=== PATIENT | female | born 2000 | race Caucasian/White ===

== ENCOUNTER 2022-11-20 02:11 | Emergency (ER) | payer BC, SELFPAY ==
[2022-11-20 02:15] VITALS: BP 131/75; PULSE 118; RESP 16; TEMP 36.9; O2SAT 100
--- NOTE | 2022-11-20 02:32 | ED.GENADULT ---
HPI - General Adult General Chief complaint: Ear Stated complaint: ear, headache. Time Seen by Provider: 11/20/22 02:25 History of Present Illness HPI narrative: Patient 22-year-old female who presents the emergency department with chief complaint of right ear pain. Patient reports that she has had an upper respiratory infection for approximately 1 week patient also reports she is currently 19 weeks the patient states that she had a cough has had a frontal headache and pain in her throat on the right side. Patient states that this evening she started having severe pain in the right ear reports she is not able to get comfortable and reports she is concerned that she may have developed an ear infection. Related Data Allergies Allergy/AdvReac Type Severity Reaction Status Date / Time No Known Allergies Allergy Verified 11/20/22 02:12 Review of Systems Review of Systems: A 10 system review of systems was completed on the patient and is negative except for what is stated in the HPI. Nursing and ancillary documentation was reviewed. Exam Narrative: GENERAL: Well-appearing, well-nourished, and in no acute distress. HEAD: Normocephalic, atraumatic. EYES: PERRLA and EOMI. ENT: Nares clear, no rhinorrhea or epistaxis. Mucous membranes moist. Right tympanic membrane is erythematous NECK: Supple. CHEST: Clear to auscultation. No respiratory distress. HEART: Regular rate and rhythm. No murmur heard. Normal peripheral pulses. ABDOMEN: Soft, nontender, nondistended, normal active bowel sounds. EXTREMITIES: Normal range of motion. No edema. SKIN: Warm, dry, no rash. NEURO: No focal deficits. Alert and oriented x3. PSYCH: Normal mood and affect. Course Vital Signs Vital signs: Vital Signs Temperature 36.9 C 11/20/22 02:15 Pulse Rate 118 H 11/20/22 02:15 Respiratory Rate 16 11/20/22 02:15 Blood Pressure 131/75 11/20/22 02:15 Pulse Oximetry 100 11/20/22 02:15 Oxygen Delivery Room Air 11/20/22 02:15 Temperature 36.9 C 11/20/22 02:15 Pulse Rate 118 H 11/20/22 02:15 Respiratory Rate 16 11/20/22 02:15 Blood Pressure 131/75 11/20/22 02:15 Pulse Oximetry 100 11/20/22 02:15 Oxygen Delivery Room Air 11/20/22 02:15 Medical Decision Making MDM Narrative Medical decision making narrative: Differential diagnosis includes otitis media, upper respiratory infection, sinus infection, viral syndrome Patient's physical exam is consistent with acute otitis media. The patient will be started on amoxicillin and will be instructed to follow-up with her primary care provider. Vital Signs Vital Signs: Vital Signs Temperature 36.9 C 11/20/22 02:15 Pulse Rate 118 H 11/20/22 02:15 Respiratory Rate 16 11/20/22 02:15 Blood Pressure 131/75 11/20/22 02:15 Pulse Oximetry 100 11/20/22 02:15 Oxygen Delivery Room Air 11/20/22 02:15 Temperature 36.9 C 11/20/22 02:15 Pulse Rate 118 H 11/20/22 02:15 Respiratory Rate 16 11/20/22 02:15 Blood Pressure 131/75 11/20/22 02:15 Pulse Oximetry 100 11/20/22 02:15 Oxygen Delivery Room Air 11/20/22 02:15 Discharge Plan Discharge Clinical Impression: Otitis media Qualifiers: Chronicity: acute Laterality: right Recurrence: not specified as recurrent Spontaneous tympanic membrane rupture: without spontaneous rupture Patient Disposition: Home, Self-Care Condition: Stable Instructions: Antibiotic Form, Ear Infection (ED) Prescriptions: New amoxicillin 500 mg capsule 500 mg PO Q12H 10 Days Qty: 20 0RF Follow-up/Referrals: PHYSICIAN NOT ON STAFF,NONSTAFF [Primary Care Provider] - Time of Disposition: 02:35
[2022-11-20] MEDS: ACETAMINOPHEN 500 MG TABLET 1000 MG PO (02:49)
[2022-11-20] MEDS: AMOXICILLIN 500 MG CAPSULE PO (02:49)
== END 2022-11-20 02:57 | disposition home or self-care (01) ==
LOC: ANHED 02:45
PROVIDERS: Emergency Provider Emergency Medicine; PCP Family Medicine
DX: O99.891 Other specified diseases and conditions complicating pregnancy (principal); H66.91 Otitis media, unspecified, right ear; Z3A.19 19 weeks gestation of pregnancy
CPT/HCPCS: 99283; A9270

== ENCOUNTER 2023-03-29 09:42 | Outpatient (CLI) | payer SELFPAY ==
[2023-03-29 10:11] LABS: Basophils Absolute Auto 0.1 K/mm3 (0.0-0.1); Basophils Percent Auto 0.6 % (0.2-1.2); Eosinophils Absolute Auto 0.5 K/mm3 (0-0.3); Eosinophils Percent Auto 4.5 % (0-4.4); Hematocrit 30.1 % (37.0-47.0); Immature Granulocyte Absolute 0.08 K/mm3 (0.00-0.031); Immature Granulocyte Percent A 0.7 % (0-0.5); Lymphocytes Absolute Auto 2.77 K/mm3 (0.9-3.2); Lymphocytes Percent Auto 23.8 % (18.3-44.2); Mean Corpuscular HGB Conc 29.9 g/dl (32-36); Mean Corpuscular Hemoglobin 24.8 pg (26-34); Mean Corpuscular Volume 82.9 fl (80-100); Mean Platelet Volume 11.5 fl (7.4-10.4); Monocytes Absolute Auto 0.8 K/mm3 (0.1-0.6); Monocytes Percent Auto 6.9 % (2.6-8.5); Neutrophils Absolute Auto 7.4 K/mm3 (1.3-6.7); Neutrophils Percent Auto 63.5 % (45.5-73.1); Platelet Count Result 187 k/mm3 (150-375); Red Blood Count 3.63 M/mm3 (4.2-5.4); Red Cell Distribution Width 15.3 % (11.5-14.5); White Blood Count 11.7 K/mm3 (4.5-10.0)
[2023-03-29 10:16] VITALS: BP 129/86; PULSE 89
[2023-03-29 10:21] LABS: Alanine Aminotransferase 14 U/L (6-35); Albumin Level 3.5 g/dL (3.5-5.1); Alkaline Phosphatase 175 U/L (38-126); Anion Gap 4 mmol/L (8-16); Aspartate Amino Transferase 20 U/L (14-36); Bilirubin,Total 0.3 mg/dL (0.2-1.3); Blood Urea Nitrogen 6 mg/dL (7-17); Calcium 8.7 mg/dL (8.4-10.2); Carbon Dioxide 20 mmol/L (22-30); Chloride 106 mmol/L (98-107); Estimated Glomerular Filt Rate > 60; Glucose 94 mg/dL (65-110); Hypochromasia 1+ (NORMAL); Ovalocytes 1+ (NORMAL); Platelet Estimate Adequate (Adequate); Potassium 4.1 mmol/L (3.4-5.0); Schistocytes None Seen (NORMAL); Sodium 130 mmol/L (137-145); Uric Acid 4.2 mg/dL (2.5-7.5)
[2023-03-29 10:24] LABS: Creatinine Urine 35.5 mg/dL; Total Protein Urine Random 24 mg/dL; Ur Ttl Prot Creatinine Ratio 0.68 mg/mg (0-0.20)
[2023-03-29 10:28] LABS: Appearance Urine Clear (Clear); Bacteria Urine None Seen /hpf; Bilirubin Urine Negative (Negative); Blood Urine Negative (Negative); Color Urine Yellow (Yellow); Glucose Urine UA Negative (Negative); Ketones Urine Negative (Negative); Leukocyte Esterase Ur Trace LEU/UL (NEGATIVE); Nitrate Urine Negative (Negative); Non Pathogenic Casts 0-2; Protein Urine Negative (Negative); RBC Urine 0-2 /hpf (0-2); Specific Grav Ur 1.011 (1.001-1.035); Squamous Epithelial Cell Urine Occasional /hpf (Few); Urobilinogen Urine 0.2 mg/dL (<2.0); WBC Urine 0-5 /hpf (0-3)
[2023-03-29 10:31] VITALS: BP 121/73; PULSE 79
[2023-03-29 10:32] LABS: Add Urine Microscopic? YES
[2023-03-29 10:45] VITALS: BP 117/84; PULSE 84
[2023-03-29 11:01] VITALS: BP 112/75; PULSE 77
== END 2023-03-29 11:10 | disposition home or self-care (01) ==
LOC: ANHOBOP 09:46 → ANHOBPP 09:48
PROVIDERS: Visit Provider Obstetrics & Gynecology
DX: O13.9 Gestational [pregnancy-induced] hypertension without significant proteinuria, unspecified trimester (principal); Z3A.00 Weeks of gestation of pregnancy not specified
CPT/HCPCS: 36415; 59025; 80053; 81001; 82570; 84156; 84550; 85025; 87086; 99199

== ENCOUNTER 2023-04-05 16:55 | Inpatient (IN) | payer SELFPAY ==
[2023-04-05 17:29] VITALS: BP 129/87; PULSE 82; PULSE 84; O2SAT 99
[2023-04-05 17:30] VITALS: TEMP 36.4
--- NOTE | 2023-04-05 17:59 | WPDANESEPP ---
Anes - Eval Pre Procedure Procedure: Labor epidural Date/Time: 04/05/23 17:59 Surgeon: Socoter Kwok Preop Diagnosis: Abdominal pain with contractions Pre Op Diagnosis: Induction of Labor Patient Data Age: 23 Gender: F Height: Weight: Last Vital Signs Pulse 82 04/05/23 17:29 BP 129/87 04/05/23 17:29 Pulse Ox 99 04/05/23 17:29 Allergies Allergy/AdvReac Type Severity Reaction Status Date / Time No Known Allergies Allergy Verified 11/20/22 02:12 Home Medications Medication Instructions Recorded Confirmed Type ondansetron HCl 4 mg tablet 4 mg PO Q6H PRN Nausea And Vomiting 03/10/23 03/10/23 History vit no.95-ferrous 1 tablet PO DAILY 03/10/23 03/10/23 History fumarate 28 mg-folic acid 800 mcg tablet () : gestational age HCG: positive Patient hx anesthesia problems: none Family hx anesthesia problems: none Results Review: All pre-operative results and documents have been reviewed as part of the pre-operative evaluation. FORMERLY [facility], [facility]–1983 Past Medical History Medical History (Updated 04/05/23 @ 18:00 by Max Zheng CRNA) Obesity and not yet delivered Scoliosis Family History Family History (Updated 03/10/23 @ 12:45 by Monika Matute RN) Other No pertinent family history in first degree relatives Social History Social History Substance use: never Spiritual care concerns: No Exam Day of Procedure 04/05/23 17:59 Patient weight: obese Airway: Mallampati scale class II
[2023-04-05 18:20] LABS: Basophils Absolute Auto 0.1 K/mm3 (0.0-0.1); Basophils Percent Auto 0.4 % (0.2-1.2); Eosinophils Absolute Auto 0.5 K/mm3 (0-0.3); Eosinophils Percent Auto 3.7 % (0-4.4); Hematocrit 29.1 % (37.0-47.0); Hemoglobin 8.9 g/dL (12.0-15.0); Immature Granulocyte Absolute 0.07 K/mm3 (0.00-0.031); Immature Granulocyte Percent A 0.5 % (0-0.5); Lymphocytes Absolute Auto 3.08 K/mm3 (0.9-3.2); Mean Corpuscular HGB Conc 30.6 g/dl (32-36); Mean Corpuscular Hemoglobin 24.7 pg (26-34); Mean Corpuscular Volume 80.8 fl (80-100); Mean Platelet Volume 11.8 fl (7.4-10.4); Monocytes Percent Auto 7.3 % (2.6-8.5); Neutrophils Absolute Auto 8.7 K/mm3 (1.3-6.7); Neutrophils Percent Auto 65.1 % (45.5-73.1); Platelet Count Result 184 k/mm3 (150-375); Red Cell Distribution Width 15.7 % (11.5-14.5); White Blood Count 13.4 K/mm3 (4.5-10.0)
[2023-04-05 18:29] LABS: Alanine Aminotransferase 14 U/L (6-35); Albumin Level 3.7 g/dL (3.5-5.1); Alkaline Phosphatase 203 U/L (38-126); Anion Gap 7 mmol/L (8-16); Aspartate Amino Transferase 23 U/L (14-36); Bilirubin,Total 0.4 mg/dL (0.2-1.3); Blood Urea Nitrogen 11 mg/dL (7-17); Calcium 9.3 mg/dL (8.4-10.2); Carbon Dioxide 21 mmol/L (22-30); Chloride 105 mmol/L (98-107); Estimated Glomerular Filt Rate > 60; Glucose 77 mg/dL (65-110); Potassium 4.1 mmol/L (3.4-5.0); Sodium 133 mmol/L (137-145); Uric Acid 4.8 mg/dL (2.5-7.5)
[2023-04-05 18:42] LABS: Creatinine Urine 79.5 mg/dL; Total Protein Urine Random 139 mg/dL; Ur Ttl Prot Creatinine Ratio 1.75 mg/mg (0-0.20)
[2023-04-05 18:49] LABS: Appearance Urine Clear (Clear); Bacteria Urine 1+ /hpf; Bilirubin Urine Negative (Negative); Blood Urine Negative (Negative); Color Urine Yellow (Yellow); Glucose Urine UA Negative (Negative); Ketones Urine Negative (Negative); Leukocyte Esterase Ur Trace LEU/UL (Negative); Nitrate Urine Negative (Negative); Non Pathogenic Casts 0-2; Protein Urine 2+ mg/dL (Negative); RBC Urine 0-2 /hpf (0-2); Specific Grav Ur 1.015 (1.001-1.035); Squamous Epithelial Cell Urine Occasional /hpf (Few); Urobilinogen Urine 0.2 mg/dL (<2.0); WBC Urine 0-5 /hpf; pH Urine 6.5 (5.0-9.0)
[2023-04-05] MEDS: DINOPROSTONE 10 MG VAG INSERT VAGINAL (18:54)
[2023-04-05 19:07] LABS: Add Urine Microscopic? YES
[2023-04-05 21:50] VITALS: BP 125/63; PULSE 95
[2023-04-05] MEDS: ZOLPIDEM TARTRATE (*CRX) 5 MG TABLET PO (21:58)
[2023-04-05 22:00] VITALS: BP 126/81; PULSE 89; TEMP 37.3
[2023-04-05 23:01] VITALS: BP 126/82; PULSE 86
[2023-04-05 23:45] VITALS: TEMP 37
[2023-04-06] VITALS (227 sets, daily range): BP systolic 89–163; BP diastolic 55–140; PULSE 71–229; RESP 18–20; TEMP 36.2–38.1; O2SAT 81–100; BMI 31.4
[2023-04-06] MEDS: LACTATED RINGERS 500 ML 999 ML IV CONT (01:25)
[2023-04-06] MEDS: OXYTOCIN 30 UNITS/NS 500 ML 30 UNITS/500 ML BAG IV CONT (03:59)
--- NOTE | 2023-04-06 07:28 | PM.IMHP ---
H&P: HPI History of Present Illness Date/Time: 04/06/23 07:28 Chief Complaint: Hypertension at term Narrative: 23-year-old 1 para 0 with last menstrual 07/05/2022, EDC of 04/09/2022, presents at 39 weeks gestation for induction of labor. Her blood pressures have been elevated the last few visits. She is now spilling protein. She is admitted for induction of labor PIH workup she is presently ruptured spontaneously after Cervidil overnight. heart tones are reassuring and blood pressure is stable with an epidural PMFSH Past Medical History Medical History Obesity and not yet delivered Scoliosis Family History Family History Other No pertinent family history in first degree relatives Social History Social History Substance use: never Spiritual care concerns: No Meds Home Medications and Allergies Home Medications Medication Instructions Recorded Confirmed Type ondansetron HCl 4 mg tablet 4 mg PO Q6H PRN Nausea And Vomiting 03/10/23 03/10/23 History vit no.95-ferrous 1 tablet PO DAILY 03/10/23 03/10/23 History fumarate 28 mg-folic acid 800 mcg tablet () Allergies Allergy/AdvReac Type Severity Reaction Status Date / Time No Known Allergies Allergy Verified 11/20/22 02:12 Vital Signs Vital Signs - 24 hr 04/05/23 17:29 04/05/23 17:30 04/05/23 21:50 Temperature 97.6 F Pulse Rate 82 95 Respiratory Rate Blood Pressure 129/87 125/63 Pulse Oximetry 99 04/05/23 22:00 04/05/23 23:01 04/05/23 23:45 Temperature 99.1 F 98.6 F Pulse Rate 89 86 Respiratory Rate Blood Pressure 126/81 126/82 Pulse Oximetry 04/06/23 00:01 04/06/23 01:01 04/06/23 02:01 Temperature Pulse Rate 83 105 H 93 Respiratory Rate Blood Pressure 125/83 141/76 H 127/83 Pulse Oximetry 04/06/23 02:27 04/06/23 02:30 04/06/23 02:31 Temperature Pulse Rate 122 H Respiratory Rate Blood Pressure 142/85 H Pulse Oximetry 100 81 L 89 L 04/06/23 02:31 04/06/23 02:35 04/06/23 02:36 Temperature Pulse Rate 118 H 133 H Respiratory Rate Blood Pressure 135/64 120/71 Pulse Oximetry 100 100 04/06/23 02:39 04/06/23 02:41 04/06/23 02:42 Temperature Pulse Rate 97 90 Respiratory Rate Blood Pressure 129/76 117/69 Pulse Oximetry 100 04/06/23 02:45 04/06/23 02:46 04/06/23 02:49 Temperature Pulse Rate 82 Respiratory Rate Blood Pressure 118/72 100/74 Pulse Oximetry 100 04/06/23 02:51 04/06/23 02:52 04/06/23 02:55 Temperature Pulse Rate 103 H 90 Respiratory Rate Blood Pressure 114/76 111/68 Pulse Oximetry 100 04/06/23 02:56 04/06/23 02:57 04/06/23 03:00 Temperature Pulse Rate 96 93 Respiratory Rate Blood Pressure 123/73 110/71 Pulse Oximetry 100 04/06/23 03:01 04/06/23 03:02 04/06/23 03:06 Temperature 98.1 F Pulse Rate Respiratory Rate Blood Pressure Pulse Oximetry 96 98 04/06/23 03:11 04/06/23 03:15 04/06/23 03:16 Temperature Pulse Rate 76 Respiratory Rate Blood Pressure 118/67 Pulse Oximetry 98 97 04/06/23 03:21 04/06/23 03:26 04/06/23 03:30 Temperature Pulse Rate 99 Respiratory Rate Blood Pressure 114/66 Pulse Oximetry 95 96 04/06/23 03:31 04/06/23 03:36 04/06/23 03:41 Temperature Pulse Rate Respiratory Rate Blood Pressure Pulse Oximetry 96 94 95 04/06/23 03:45 04/06/23 03:46 04/06/23 03:51 Temperature Pulse Rate 108 H Respiratory Rate Blood Pressure 126/71 Pulse Oximetry 97 97 04/06/23 03:56 04/06/23 04:00 04/06/23 04:01 Temperature Pulse Rate 145 H Respiratory Rate Blood Pressure 107/82 Pulse Oximetry 96 99 04/06/23 04:16 04/06/23 04:31 04/06/23 04:45 Temperature
[2023-04-06] MEDS: LACTATED RINGERS 1,000 ML 125 ML IV CONT (10:18)
[2023-04-06] MEDS: LORATADINE 10 MG TABLET PO (11:07)
--- NOTE | 2023-04-06 12:16 | PM.OBPNLAB ---
Pain Control Date/time seen: 04/06/23 12:16 Pain control: tolerating well and epidural Pelvic Exam Dilation (cm): 3 Effacement (%): 80 station: -2 Amniotic membrane status: Leaking
[2023-04-06 13:49] LABS: Rapid Plasma Reagin Non-Reactive (NonReactive)
--- NOTE | 2023-04-06 13:58 | PC.NURSE ---
1330 - Introductions were briefly made as mother is working through painful contractions. RN assisted the patient in working through the contraction and ways for the father of the baby to encourage mother to breath and relax through the contraction. Once mother was in a better place I encouraged mother to place [id number] until the first feeding. Resources provided with educational trifold for bonding and feeding . Parents voiced understanding of information.
--- NOTE | 2023-04-06 16:01 | PM.OBPNLAB ---
Pain Control Date/time seen: 04/06/23 16:01 Pain control: tolerating well and epidural Pelvic Exam Dilation (cm): 10 Effacement (%): 100 station: -1 Amniotic membrane status: Leaking
--- NOTE | 2023-04-06 16:30 | PM.OBPRVD ---
OB - Delivery Note Procedure Delivery date: 04/06/23 Procedure: mil Events: Gestational Hypertension Induction method: Per Cervidil Protocol Delivery augmentation: Pitocin Delivery monitor: External FHT and Internal Uterine Route of delivery: Episiotomy description: None Laceration Description: Perineal - 1st Degree Delivery repair: vicryl Specimen: No Quantitative Blood Loss (ml): 60 Anesthesia type: Epidural Disposition: Floor Baby Date of : 04/06/23 Time of : 16:18 Weeks of gestation at delivery: 39 gender: Female presentation: vertex position: Right Occiput Anterior Placenta delivery description: Spontaneous Cord Vessel Description: 3 Vessels, Nuchal Cord, Loose and Delayed Cord Clamping score one minute: 9 score five minutes: 9
[2023-04-06] MEDS: OXYTOCIN 30 UNITS/NS 500 ML 30 UNITS/500 ML BAG 125 UNITS IV CONT (16:44)
[2023-04-06] MEDS: ACETAMINOPHEN 325 MG TABLET 650 MG PO (19:07)
[2023-04-06] MEDS: IBUPROFEN 600 MG TABLET PO (19:08)
[2023-04-06] MEDS: DOCUSATE SODIUM 100 MG CAPSULE PO (19:08)
[2023-04-07 04:15] VITALS: BP 140/96; PULSE 99; RESP 18; TEMP 36.8; O2SAT 99
[2023-04-07 04:39] LABS: Hematocrit 24.9 % (37.0-47.0); Hemoglobin 7.5 g/dL (12.0-15.0)
--- NOTE | 2023-04-07 07:06 | PM.DS ---
DS: Admitting Diagnosis Discharge Date 04/08/2023 Admitting Diagnosis term / gestational hypertension DS: Discharge Diagnosis Discharge Diagnosis (1) Term : Code(s): Z34.90 - Encounter for supervision of normal , unspecified, unspecified trimester Status: Acute (2) Gestational hypertension: Code(s): O13.9 - Gestational [-induced] hypertension without significant proteinuria, unspecified trimester Status: Acute DS: Summary Hospital Course Reason for hospitalization: patient was admitted for induction of labor at term secondary to elevated blood pressures Hospital Course: patient underwent successful spontaneous vaginal delivery. Her hospital course unremarkable. She remained afebrile. She was up, voiding without difficulty, ambulating, eating read diet, general without complaints. Time Spent with Patient Time attestation: Total time spent providing and/or coordinating discharge services: Exam Const: General: cooperative, healthy appearing and comfortable Nutritional Appearance: average body habitus Orientation/consciousness: oriented to person, oriented to place and oriented to time HENMT: Head: normal to inspection Resp: Effort & Inspection: normal respiratory effort Cardio: Rate: regular rate Rhythm: regular rhythm Heart sounds: S1 normal heart sound present and S2 normal heart sound present GI: Inspection: normal to inspection ( Fundus firm below the umbilicus) DS: Data Data Completed and Pending Labs on day of discharge: Labs from last 24 hours 04/07/23 04/05/23 04:20 17:56 Hgb 7.5 L Hct 24.9 L RPR Non-reactive Discharge Plan Discharge Attending physician on discharge: Norman Nam Discharging Clinician: Norman Nam Patient Disposition: Home, Self-Care Activity: may shower, no straining and pelvic rest Diet: heart healthy Wound Care Instructions: follow printed instructions Patient Instructions: Antibiotic Form Stand Alone Forms: General Discharge Information Follow-up/Referrals: Norman Nam MD [Physician] - Discharge Medications: Continued ondansetron HCl 4 mg tablet 4 mg PO Q6H PRN (Reason: Nausea And Vomiting) PNV cmb#95-ferrous fumarate-FA [] 28 mg iron- 800 mcg Tablet 1 tablet PO DAILY Date of admission: 04/05/23 16:55 Primary Care Provider: PHYSICIAN,SOLID WASTE MANAGER Admitting Provider: Norman Nam Attending physician on admission: Norman Nam Condition: Stable
--- NOTE | 2023-04-07 07:09 | PM.OBPNVD ---
OB - PN: Subj Subjective Date/time seen: 04/07/23 07:09 Patient comments: no complaints and pain well controlled baby status: doing well OB - PN: Obj Data Labs 04/07/23 04:20 04/05/23 17:56 Labs: Laboratory Results - last 24 hr 04/05/23 04/07/23 17:56 04:20 Hgb 7.5 L Hct 24.9 L RPR Non-reactive OB - PN A/P Plan day: 1 Plan: routine care Time Spent With Patient Time: Total time spent is greater than 50% in coordination of care (as documented) at patient's floor/unit and/or counseling patient: Time with patient: less than 15 minutes Exam Const: General: cooperative, healthy appearing and comfortable Nutritional Appearance: average body habitus Orientation/consciousness: oriented to person, oriented to place and oriented to time HENMT: Head: normal to inspection Resp: Effort & Inspection: normal respiratory effort Cardio: Rate: regular rate Rhythm: regular rhythm Heart sounds: S1 normal heart sound present and S2 normal heart sound present GI: Inspection: normal to inspection ( fundus firm below umbilicus)
[2023-04-07 08:25] VITALS: BP 127/75; PULSE 88; RESP 18; TEMP 37.4; O2SAT 98
[2023-04-07] MEDS: IBUPROFEN 600 MG TABLET PO (08:30)
[2023-04-07] MEDS: ACETAMINOPHEN 325 MG TABLET 650 MG PO (08:30)
[2023-04-07] MEDS: DOCUSATE SODIUM 100 MG CAPSULE PO ×2 (08:31→19:56)
[2023-04-07] MEDS: POLYSACCHARIDE IRON COMPLEX 150 MG CAPSULE PO ×2 (08:31→19:56)
[2023-04-07] MEDS: MULTIVIT/MIN/PREN/FOL AC/IRON TABLET 1 TAB PO (08:31)
[2023-04-07 12:22] VITALS: BP 127/87; PULSE 94; RESP 16; TEMP 37.3; O2SAT 97
--- NOTE | 2023-04-07 13:17 | PC.NURSE ---
1000 - 1040 Consulted with patient to assess needs related to . Mother led the conversation with her?plans to feed?her and the?experience so far. Mother works with her with encouragement and education. Mother has more than one bruise markings on her breast, areola and next to the base of the nipple on the right breast. Encouraged understanding of the benefits of skin to skin (demonstrating unwrapping infant and placing upright on her chest), stimulating with massage touch, changing positions to encourage wakefulness, how to watch for early feeding cues, responsive feeding, feeding on demand (aiming for 8-12 times in 24 hours, about every 2-3 hours), milk production, building/maintaining a milk supply, hand expression, signs of adequate intake/output and how to record on the feeding sheet. Reviewed positioning and ear, shoulder, hip alignment, supporting the breast to facilitate a deep latch, asymmetrical latch (off-center), leading with the chin with a big, open, wide gape and body close to mother. is unable to latch deeply and maintain the latch without misshaping the nipple. Mother was educated on the skill of hand expression and 1/2 tsp (approximately 2.5-3mls) of colostrum was spoon fed to the infant. Discussed feeding with Dr. Lopez. Dr. Lopez orders to be supplemented. Mother can pump to see if she can collect more colostrum so the can receive volume . Infant has had two wet and two stools since and is a little over 18 hours old with questionable sessions, a syringe feed of 0.3mls and a spoon feeding of approximately 1/2 tsp. 1050- 1120 Consulted with mother again before the planned consult related to Pediatricians concern. Nipple shield provided to mother due to having difficulty with latching to the smooth nipples. Reviewed good handwashing, cleaning the nipple shield and application. Discussed with mom the nipple shield precautions, possible complications associated with the risks and benefits. Reviewed practicing with a nipple shield, then without and how to protect the milk supply and production. Mom voiced understanding of the importance of hand expression, nipple stimulation and initiating a pumping schedule if infant continues to nurse with the shield. latched optimally to the right breast in football position with and without the nipple shield. latches with the nipple shield and colostrum is seen in the nipple shield. Practicing the nipple shield leonor we were able to get infant to latch effectively for a few sucks, then lets go of the breast. At times infant holds the nipple in the mouth, however,latches with the nipple shield. Reviewed good handwashing when or touching the breast/nipples to prevent infection. Resources used to facilitate learning were used with the tool, mom and baby guide. Primary RN assisted mother with initiating pumping, mother did not like pumping and declined to continue pumping, then infant was bottle fed [address] formula [address] Wagner's order. Mother voiced understanding of skin to skin, protecting her milk supply, calling for assistance if needed for to practice latching with/without the nipple shield, removing the milk, balancing with rest and self care. Resources provided for inpatient with feeding sheet, name on the communication board and the mom/baby guide. Parents voiced understanding of information, demonstrated learning and will call if there is a request for assistance. Reported to primary RN.
--- NOTE | 2023-04-07 14:02 | WPDANLDPN2 ---
Anes-Prog Note L&D Date/Time: 04/07/23 14:02 Comfortable throughout: labor and delivery Neuraxial method: epidural Neuro status: Neuro function grossly intact. Cardiovascular status: normal Respiratory status: normal Airway patency: baseline Mental status: baseline Post-Op hydration status: normal Vital Signs: Last Vital Signs Temp 37.3 C 04/07/23 12:22 Pulse 94 04/07/23 12:22 Resp 16 04/07/23 12:22 BP 127/87 04/07/23 12:22 Pulse Ox 97 04/07/23 12:22 O2 Del Method Room Air 04/06/23 20:15 Pain score (VAS): 2/10 I/O: Intake & Output 04/06/23 04/07/23 04/07/23 23:59 07:59 15:59 Intake Total 300 640 Output Total 60 800 500 Balance -60 -500 140 Post-procedural complaints: none Patient feedback: Patient satisfied with anesthetic care.
[2023-04-07 19:44] VITALS: BP 125/88; PULSE 85; RESP 16; TEMP 36.8; O2SAT 98
--- NOTE | 2023-04-08 06:37 | PM.OBPNVD ---
OB - PN: Subj Subjective Date/time seen: 04/08/23 06:37 Patient comments: no complaints and pain well controlled baby status: doing well and nursing well OB - PN: Obj Data Labs 04/07/23 04:20 04/05/23 17:56 OB - PN A/P Plan day: 2 Plan: routine care, discharge home and follow up 6 weeks Time Spent With Patient Time: Total time spent is greater than 50% in coordination of care (as documented) at patient's floor/unit and/or counseling patient: Time with patient: less than 15 minutes Exam Const: General: cooperative, healthy appearing and comfortable Nutritional Appearance: average body habitus Orientation/consciousness: oriented to person, oriented to place and oriented to time HENMT: Head: normal to inspection Resp: Effort & Inspection: normal respiratory effort Cardio: Rate: regular rate Rhythm: regular rhythm Heart sounds: S1 normal heart sound present and S2 normal heart sound present GI: Inspection: normal to inspection
[2023-04-08 07:35] VITALS: BP 119/80; PULSE 78; RESP 16; TEMP 37.6; O2SAT 98
[2023-04-08] MEDS: POLYSACCHARIDE IRON COMPLEX 150 MG CAPSULE PO (10:54)
[2023-04-08] MEDS: MULTIVIT/MIN/PREN/FOL AC/IRON TABLET 1 TAB PO (10:54)
[2023-04-08 12:20] VITALS: BP 132/84; PULSE 82; RESP 16; TEMP 36.7; O2SAT 99
[2023-04-09 09:19] VITALS: BP 120/83; PULSE 78; RESP 18; TEMP 36.6; O2SAT 100
== END 2023-04-08 13:30 | disposition home or self-care (01) | DRG 560 ==
LOC: ANHLDR 17:07 → ANHOB2 04-06 19:24
PROVIDERS: Admitting Provider Obstetrics & Gynecology; Visit Provider Obstetrics & Gynecology
DX: O13.4 Gestational [pregnancy-induced] hypertension without significant proteinuria, complicating childbirth (principal); Z37.0 Single live birth; O14.04 Mild to moderate pre-eclampsia, complicating childbirth; O70.0 First degree perineal laceration during delivery; O69.81X0 Labor and delivery complicated by cord around neck, without compression, not applicable or unspecified; Z3A.39 39 weeks gestation of pregnancy
CPT/HCPCS: 36415; 80053; 81001; 82570; 84156; 84550; 85014; 85018; 85025; 86592; 86850; 86900; 86901; A9270; J2590; J2795; J7120

== ENCOUNTER 2023-04-14 00:11 | Emergency (ER) | payer BC, SELFPAY ==
[2023-04-14 00:15] VITALS: BP 136/96; PULSE 83; RESP 14; TEMP 36.6; O2SAT 100
[2023-04-14 00:56] VITALS: BP 118/85; PULSE 77; RESP 13; O2SAT 100
[2023-04-14] MEDS: diphenhydrAMINE HCl INJ 50 MG/ML VIAL IV PUSH (02:01)
--- NOTE | 2023-04-14 02:45 | PC.NURSE ---
Pt given ordered IV benadryl and asked this RN to stop. Pt not given other ordered medication due to pt refusal. pt stated getting medications through an IV just makes my anxiety worse . provider made aware. This rn to give decadron IM per verbal order read back from dr. Carrion.
--- NOTE | 2023-04-14 02:59 | ED.GENADULT ---
HPI - General Adult General Chief complaint: Unspecified Stated complaint: hives, swelling to stretch fischer; gave 9th Time Seen by Provider: 04/14/23 00:57 History of Present Illness HPI narrative: Patient a 23-year-old female who presents the emergency department with chief complaint of urticaria. The patient reports that that she recently gave on the ninth the patient states that since then she has noticed that where she had areas of stretch fischer she started developing a urticaric rash in those areas the patient reports is extremely itchy reports that the symptoms have not been improved with Pepcid and Benadryl at home patient denies any angioedema denies shortness of breath denies wheezing the patient reports no new medications reports no new exposures to any new foods or detergents or lotions. Related Data Home Medications Medication Instructions Recorded Confirmed ondansetron HCl 4 mg tablet 4 mg PO Q6H PRN Nausea And Vomiting 03/10/23 03/10/23 vit no.95-ferrous 1 tablet PO DAILY 03/10/23 03/10/23 fumarate 28 mg-folic acid 800 mcg tablet () Allergies Allergy/AdvReac Type Severity Reaction Status Date / Time No Known Allergies Allergy Verified 04/14/23 00:11 Review of Systems Review of Systems: A 10 system review of systems was completed on the patient and is negative except for what is stated in the HPI. Nursing and ancillary documentation was reviewed. [facility] Past Medical History Medical History Obesity and not yet delivered Scoliosis Family History Family History Other No pertinent family history in first degree relatives Social History Social History Substance use: never Spiritual care concerns: No Course Vital Signs Vital signs: Vital Signs Temperature 36.6 C 04/14/23 00:15 Pulse Rate 83 04/14/23 00:15 Respiratory Rate 14 04/14/23 00:15 Blood Pressure 136/96 H 04/14/23 00:15 Pulse Oximetry 100 04/14/23 00:15 Oxygen Delivery Room Air 04/14/23 00:15 Temperature 36.6 C 04/14/23 00:15 Pulse Rate 77 04/14/23 00:56 Respiratory Rate 13 04/14/23 00:56 Blood Pressure 118/85 04/14/23 00:56 Pulse Oximetry 100 04/14/23 00:56 Oxygen Delivery Room Air 04/14/23 00:15 Medical Decision Making MDM Narrative Medical decision making narrative: Differential diagnosis includes urticaria, Patient was given Benadryl and also given Decadron The patient will be continued on steroids Vital Signs Vital Signs: Vital Signs Temperature 36.6 C 04/14/23 00:15 Pulse Rate 83 04/14/23 00:15 Respiratory Rate 14 04/14/23 00:15 Blood Pressure 136/96 H 04/14/23 00:15 Pulse Oximetry 100 04/14/23 00:15 Oxygen Delivery Room Air 04/14/23 00:15 Temperature 36.6 C 04/14/23 00:15 Pulse Rate 77 04/14/23 00:56 Respiratory Rate 13 04/14/23 00:56 Blood Pressure 118/85 04/14/23 00:56 Pulse Oximetry 100 04/14/23 00:56 Oxygen Delivery Room Air 04/14/23 00:15 Discharge Plan Discharge Clinical Impression: Urticaria Patient Disposition: Home, Self-Care Condition: Stable Instructions: Antibiotic Form, Urticaria (ED) Prescriptions: New prednisone 20 mg tablet 40 mg PO DAILY 5 Days Qty: 10 0RF No Action ondansetron HCl 4 mg tablet 4 mg PO Q6H PRN (Reason: Nausea And Vomiting) PNV cmb#95-ferrous fumarate-FA [] 28 mg iron- 800 mcg Tablet 1 tablet PO DAILY Follow-up/Referrals: PHYSICIAN,SENIOR PENSIONS ADMINISTRATOR [Primary Care Provider] - Time of Disposition: 03:09
[2023-04-14 03:22] VITALS: BP 112/85; PULSE 90; RESP 20; O2SAT 100
== END 2023-04-14 03:24 | disposition home or self-care (01) ==
PROVIDERS: Emergency Provider Emergency Medicine
DX: L50.9 Urticaria, unspecified (principal)
CPT/HCPCS: 96372; 96374; 99284; J1100; J1200

== ENCOUNTER 2023-04-21 14:57 | Outpatient (CLI) | payer BC, SELFPAY ==
--- NOTE | ~2023-04-21 | US_ITS ---
US breast RT limited DATE: 04/21/2023 16:04 INDICATION: 3 weeks lower inner quadrant breast pain TECHNIQUE: Real-time imaging of the lower inner quadrant and subareolar area of the right breast COMPARISON: None FINDINGS: No suspicious mass or shadowing, cyst or other significant sonographic abnormality is noted . IMPRESSION: Negative Reviewed, dictated and finalized at [facility] Reviewed, dictated and finalized at [facility]. IMPRESSION: Negative
== END 2023-04-21 14:58 | disposition home or self-care (01) ==
PROVIDERS: Visit Provider Obstetrics & Gynecology
DX: N64.4 Mastodynia (principal)
CPT/HCPCS: 76642

== ENCOUNTER 2023-04-22 17:17 | Observation (INO) | payer BC, OTHER, SELFPAY ==
[2023-04-22] VITALS (13 sets, daily range): BP systolic 109–130; BP diastolic 61–84; PULSE 100–131; RESP 14–25; TEMP 36.7–37.9; O2SAT 95–100; BMI 28.5
--- NOTE | 2023-04-22 18:26 | ED.GENADULT ---
HPI - General Adult General Chief complaint: Unspecified <TIMOTHY Gan Last Filed: 04/22/23 21:28> Stated complaint: Breast infection <TIMOTHY Gan Last Filed: 04/22/23 21:28> Time Seen by Provider: 04/22/23 18:03 <TIMOTHY Gan Last Filed: 04/22/23 21:28> Source: patient <TIMOTHY Gan Last Filed: 04/22/23 21:28> Mode of arrival: ambulatory <TIMOTHY Gan Last Filed: 04/22/23 21:28> Limitations: no limitations <TIMOTHY Gan Last Filed: 04/22/23 21:28> History of Present Illness HPI narrative: This is a 23 year old female that presents to the ER for fever. Reports she has been on antibiotics for mastitis for 3 days. Reports continued fever, redness and pain. She has been taking Tylenol with little relief. She was prompted to be seen in the ER by her BROACH GRINDER for further management. She did have an US yesterday and there was no abscess seen. <TIMOTHY Gan Last Filed: 04/22/23 21:28> Related Data Home medications: Home Medications Medication Instructions Recorded Confirmed No Home Medications 04/22/23 04/22/23 <TIMOTHY aGn Last Filed: 04/22/23 21:28> Allergies/adverse reactions: Allergies Allergy/AdvReac Type Severity Reaction Status Date / Time No Known Allergies Allergy Verified 04/14/23 00:11 <TIMOTHY Gan Last Filed: 04/22/23 21:28> Review of Systems Review of Systems: CONSTITUTIONAL: Reports fever ENT: Denies congestion, sore throat RESPIRATORY: Denies cough GASTROINTESTINAL: Denies abdominal pain GENITOURINARY: Denies dysuria BREAST: Reports redness, pain and swelling <TIMOTHY Gan Last Filed: 04/22/23 21:28> All systems reviewed & are unremarkable except as noted in HPI and below <Taylor Siddiqui PA-C - Last Filed: 04/22/23 21:28> [facility] Past Medical History Medical History: Medical History (Updated 04/22/23 @ 21:18 by Taylor Siddiqui PA-C) Obesity Scoliosis <Taylor Siddiqui PA-C - Last Filed: 04/22/23 21:28> Family History Family History: Family History Other No pertinent family history in first degree relatives <Taylor Siddiqui PA-C - Last Filed: 04/22/23 21:28> Social History Social History: Social History Smoking status: Never smoker Second hand tobacco smoke exposure: No Alcohol intake: never Substance use: never Lack of Transportation: No Lack of Food: Never True Current Housing: I Have Housing Concerned About Future Housing: No Difficulty Paying Gas/Electric Bills: No Difficulty Paying for Meds: No Currently Unemployed: No Education: High School Diploma/GED Difficulty w/ Childcare or Family Care: No Spiritual care concerns: No <Taylor Siddiqui PA-C - Last Filed: 04/22/23 21:28> Exam Narrative: GENERAL: Well-appearing, well-nourished, and in no acute distress. HEAD: Normocephalic, atraumatic. EYES: EOMI. CHEST: Clear to auscultation. No respiratory distress. No wheezes rales or rhonchi HEART: Regular rate and rhythm. No murmur heard. Normal peripheral pulses. ABDOMEN: Soft, nontender, nondistended, normal active bowel sounds. EXTREMITIES: Normal range of motion. No edema. SKIN: Warm, dry, no rash. NEURO: No focal deficits. Alert and oriented x3. PSYCH: Normal mood and affect BREAST: Right breast with diffuse, mild redness, tender to palpation. No focal fluctuance to suggest abscess <Taylor Siddiqui PA-C - Last Filed: 04/22/23 21:28> Course Course Emergency Course: Patient updated on work-up and agrees with plan of care <Taylor Siddiqui PA-C - Last Filed: 08/25/23 21:28> D[employer] MARKETING MANAGER/PA Physician Supervision For this patient encounter, I reviewed the DIGITAL CONTENT MARKETING MANAGER or PA documentation, treatment plan, and I was responsible for the medical dec
[2023-04-22] MEDS: IBUPROFEN 600 MG TABLET PO (18:55)
[2023-04-22] MEDS: SODIUM CHLORIDE 0.9% IV 1,000 ML 999 ML IV CONT (18:55)
[2023-04-22 18:56] LABS: Hematocrit 34.8 % (37.0-47.0); Hemoglobin 10.6 g/dL (12.0-15.0); Mean Corpuscular HGB Conc 30.5 g/dl (32-36); Mean Corpuscular Volume 82.1 fl (80-100); Mean Platelet Volume 10.1 fl (7.4-10.4); Platelet Count Result 275 k/mm3 (150-375); Red Blood Count 4.24 M/mm3 (4.2-5.4); Red Cell Distribution Width 17.8 % (11.5-14.5)
[2023-04-22 19:07] LABS: Anion Gap 11 mmol/L (8-16); Blood Urea Nitrogen 11 mg/dL (7-17); Carbon Dioxide 19 mmol/L (22-30); Chloride 101 mmol/L (98-107); Estimated CRCL calculation 114 ml/min; Estimated Glomerular Filt Rate > 60; Glucose 81 mg/dL (65-110); Potassium 4.2 mmol/L (3.4-5.0); Sodium 131 mmol/L (137-145)
[2023-04-22 19:16] LABS: Band Neutrophils Percent 1 % (0-6); Eosinophils Percent Manual 2 % (0-4); Monocytes Percent Manual 4 % (3-9); Neutrophils Percent Manual 79 % (46-73); Platelet Estimate Adequate (Adequate); Total Cells Counted 100
[2023-04-22 19:17] LABS: Anisocytosis 2+ (NORMAL); Hypochromasia 1+ (NORMAL); Schistocytes None Seen (NORMAL)
[2023-04-22] MEDS: AMPICILLIN SULB 3 GM/NS 100 ML 3 GM/100 ML VIAL IVPB (20:13)
--- NOTE | 2023-04-22 22:09 | ADMGEN ---
This patient, Elis Langford, was admitted to [facility] Surg Room 312-01. Patient/family oriented to hospital policies and general routines including ID bracelet, bed and alarms, visiting hours, pain management, procedures, bathroom and other care routines, personal items, smoking policy, room service/diet, and visiting hours. Information on how to activate the Rapid Response Team has been discussed. Patient/Family are encouraged to report perceived risks to care and to ask questions if they do not understand what they are told or what they should do.
[2023-04-22] MEDS: SODIUM CHLORIDE 0.9% IV 1,000 ML 125 ML IV CONT (22:34)
[2023-04-23] MEDS: AMPICILLIN SULB 3 GM/NS 100 ML 3 GM/100 ML VIAL IVPB ×4 (01:32→17:21)
[2023-04-23] MEDS: IBUPROFEN 600 MG TABLET PO ×2 (04:25→12:20)
[2023-04-23 05:00] VITALS: TEMP 37.1
[2023-04-23] MEDS: SODIUM CHLORIDE 0.9% IV 1,000 ML 125 ML IV CONT (06:24)
[2023-04-23 07:22] LABS: Basophils Percent Auto 0.3 % (0.2-1.2); Eosinophils Absolute Auto 1.1 K/mm3 (0-0.3); Eosinophils Percent Auto 7.8 % (0-4.4); Hematocrit 29.9 % (37.0-47.0); Hemoglobin 8.6 g/dL (12.0-15.0); Immature Granulocyte Absolute 0.09 K/mm3 (0.00-0.031); Immature Granulocyte Percent A 0.6 % (0-0.5); Lymphocytes Absolute Auto 2.01 K/mm3 (0.9-3.2); Lymphocytes Percent Auto 13.9 % (18.3-44.2); Mean Corpuscular HGB Conc 28.8 g/dl (32-36); Mean Corpuscular Hemoglobin 24.2 pg (26-34); Mean Corpuscular Volume 84.2 fl (80-100); Mean Platelet Volume 10.5 fl (7.4-10.4); Monocytes Absolute Auto 1.1 K/mm3 (0.1-0.6); Monocytes Percent Auto 7.8 % (2.6-8.5); Neutrophils Absolute Auto 10.1 K/mm3 (1.3-6.7); Neutrophils Percent Auto 69.6 % (45.5-73.1); Platelet Count Result 239 k/mm3 (150-375); Red Blood Count 3.55 M/mm3 (4.2-5.4); Red Cell Distribution Width 17.7 % (11.5-14.5); White Blood Count 14.5 K/mm3 (4.5-10.0)
--- NOTE | 2023-04-23 07:35 | PM.IMHP ---
H&P: HPI History of Present Illness Date/Time: 04/23/23 07:35 Chief Complaint: elevated temperature and mastitis Narrative: this is a 23-year-old with a recent delivery was breast-feeding was seen in the office a couple days ago complaining of mastitis. She was begun on antibiotics. There was a question of a abscess present on the right breast but ultrasound prove this negative. She continues with elevated temperature dehydration and feeling horrible. She has white count of 20 and is admitted for IV treatment for this infection PMFSH Past Medical History Medical History Obesity Scoliosis Family History Family History Other No pertinent family history in first degree relatives Social History Social History Smoking status: Never smoker Second hand tobacco smoke exposure: No Alcohol intake: never Substance use: never Lack of Transportation: No Lack of Food: Never True Current Housing: I Have Housing Concerned About Future Housing: No Difficulty Paying Gas/Electric Bills: No Difficulty Paying for Meds: No Currently Unemployed: No Education: High School Diploma/GED Difficulty w/ Childcare or Family Care: No Spiritual care concerns: No Meds Home Medications and Allergies Home Medications Medication Instructions Recorded Confirmed Type No Home Medications 04/22/23 04/22/23 History Allergies Allergy/AdvReac Type Severity Reaction Status Date / Time No Known Allergies Allergy Verified 04/14/23 00:11 Vital Signs Vital Signs - 24 hr 04/22/23 17:19 04/22/23 17:39 04/22/23 20:14 Temperature 100.2 F H Pulse Rate 123 H 112 H 100 Respiratory Rate 17 14 16 Blood Pressure 119/79 130/84 124/69 Pulse Oximetry 98 99 99 Oxygen Delivery Room Air 04/22/23 17:32 04/22/23 17:33 04/22/23 17:45 Temperature Pulse Rate 130 H 131 H 126 H Respiratory Rate 16 19 25 H Blood Pressure 130/84 Pulse Oximetry 99 99 98 Oxygen Delivery 04/22/23 17:46 04/22/23 18:05 04/22/23 18:35 Temperature Pulse Rate 124 H 119 H 110 H Respiratory Rate 20 20 16 Blood Pressure 123/83 Pulse Oximetry 99 99 100 Oxygen Delivery 04/22/23 19:00 04/22/23 19:15 04/22/23 19:30 Temperature Pulse Rate 118 H 125 H 104 H Respiratory Rate 17 21 H 14 Blood Pressure Pulse Oximetry 95 100 100 Oxygen Delivery 04/22/23 22:51 04/22/23 22:54 04/23/23 05:00 Temperature 98.1 F 98.7 F Pulse Rate 103 H Respiratory Rate 20 Blood Pressure 109/61 Pulse Oximetry 100 Oxygen Delivery Room Air Exam Const: General: cooperative, healthy appearing, well groomed and average body habitus Orientation/consciousness: oriented to person, oriented to place and oriented to time HENMT: Head: normal to inspection Chest: Breast/axilla inspection: abnormal inspection of the breast ( breasts are red and tender bilaterally) Resp: Effort & Inspection: normal respiratory effort Cardio: Rate: regular rate Rhythm: regular rhythm Heart sounds: S1 normal heart sound present and S2 normal heart sound present GI: Inspection: normal to inspection H&P: Results Labs Labs: Short CBC 04/22/23 Range/Units 18:48 WBC 20.0 H (4.5-10.0) K/mm3 Hgb 10.6 L D (12.0-15.0) g/dL Hct 34.8 L (37.0-47.0) % Plt Count 275 (150-375) k/mm3 [facility] 04/22/23 18:48 Sodium 131 L Potassium 4.2 Chloride 101 Carbon Dioxide 19 L BUN 11 Creatinine 0.60 L Glucose 81 Calcium 9.0 Assessment and Plan Assessment and plan (1) Mastitis: Code(s): N61.0 - Mastitis without abscess Status: Acute Plan IV hydration. IV antibiotics. Continue .
[2023-04-23] MEDS: ACETAMINOPHEN 500 MG TABLET 1000 MG PO (08:01)
[2023-04-23 09:58] LABS: Platelet Estimate Adequate (Adequate)
[2023-04-23 09:59] LABS: Burr Cells 1+ (NORMAL); Poikilocytosis 1+ (NORMAL); Schistocytes None Seen (NORMAL)
[2023-04-23 14:00] VITALS: BP 112/70; PULSE 102; RESP 18; TEMP 36.8; O2SAT 100
[2023-04-23 22:00] VITALS: BP 122/75; PULSE 100; RESP 20; TEMP 36.8; O2SAT 100
[2023-04-24] MEDS: AMPICILLIN SULB 3 GM/NS 100 ML 3 GM/100 ML VIAL IVPB ×2 (00:39→05:21)
--- NOTE | 2023-04-24 02:37 | PC.NURSE ---
Received phone call from pt in regards to pt current mental status at 0130. Pt is concerned about pt having depression. Pt is 2 weeks as he was texting her throughout the night. Pt was found in room at 0200 crying while breast pumping. Pt states she does have a history of anxiety and depression. Pt states she is not currently on any meds for it. Pt states she is okay. Pt denies harm to herself/others. Pt states she is tired of being here in the hospital. Pt was made aware of depression and how natural it is to have it and was reassured that medical staff is here to help and don't be embarrassed. Continued monitoring by RN and medical staff. Pt has calmed down, crying has stopped and pt states she is okay.
[2023-04-24] MEDS: SODIUM CHLORIDE 0.9% IV 1,000 ML 125 ML IV CONT (05:21)
[2023-04-24 06:00] VITALS: BP 125/79; PULSE 101; RESP 20; TEMP 37.1; O2SAT 100
--- NOTE | 2023-04-24 07:03 | P.DS_ITS ---
DS: Admitting Diagnosis Discharge Date 04/24/2023 0 Admitting Diagnosis Mastitis DS: Discharge Diagnosis Discharge Diagnosis (1) Mastitis: Code(s): N61.0 - Mastitis without abscess Status: Acute (2) Mild depression: Code(s): F53.0 - depression Status: Acute DS: Summary Hospital Course Reason for hospitalization: Patient was admitted through the ER with elevated temperature and mastitis Hospital Course: She is seen through the ER with an elevated white count. She was begun on Unasyn and her temperature was normal over the last 24hours. Her did describe some mild depression she agreed but did not feel like it was in need for treatment at this point. She denies being homicidal or suicidal. She does feel somewhat tired due to the mastitis/baby/mild anemia. She is to continue Keflex 500 t.i.d. for 10 day course. And she will follow up . She was told if she becomes homicidal or suicidal or anything worsens that we are here 247. She has good support with her feel that she is a safe candidate to go home at this point. I did offer her Zoloft and the prescription is written if she decides she wants to take Time Spent with Patient Time attestation: Total time spent providing and/or coordinating discharge services: Exam Const: General: cooperative, healthy appearing and comfortable Nutritional Appearance: average body habitus Orientation/consciousness: oriented to person, oriented to place and oriented to time Chest: Chest palpation & inspection: normal palpation of entire chest wall (Breast no longer appear red worse swelling) DS: Data Data Completed and Pending Labs on day of discharge: Labs from last 24 hours 04/23/23 06:44 WBC 14.5 H RBC 3.55 L Hgb 8.6 L Hct 29.9 L MCV 84.2 MCH 24.2 L MCHC 28.8 L RDW 17.7 H Plt Count 239 MPV 10.5 H Immature Gran % (Auto) 0.6 H Neut % (Auto) 69.6 Lymph % (Auto) 13.9 L [place] % (Auto) 7.8 Eos % (Auto) 7.8 H Baso % (Auto) 0.3 Lymph # (Auto) 2.01 [place] # (Auto) 1.1 H Eos # (Auto) 1.1 H Baso # (Auto) 0.0 Abs Immat Gran (auto) 0.09 H Absolute Neuts (auto) 10.1 H Absolute Nucleated RBC 0.0 Nucleated RBC % 0.0 Platelet Estimate Adequate Poikilocytosis 1+ [place] Cells 1+ Schistocytes None seen Discharge Plan Discharge Attending physician on discharge: Norman Nam Discharging Clinician: Norman Nam Patient Disposition: Home, Self-Care Activity: may shower, no straining and pelvic rest Diet: heart healthy Patient Instructions: Antibiotic Form Stand Alone Forms: General Discharge Information Follow-up/Referrals: Norman Nam MD [Physician] - Discharge Medications: New sertraline [Zoloft] 50 mg tablet 50 mg PO DAILY Qty: 30 0RF No Action No Home Medications Date of admission: 04/22/23 20:27 Primary Care Provider: PHYSICIAN NOT ON STAFF,NONSTAFF Admitting Provider: Norman Nam Attending physician on admission: Norman Nam Condition: Improved
== END 2023-04-24 09:20 | disposition home or self-care (01) ==
LOC: ANHED 21:18 → ANH3MEDSUR 21:20
PROVIDERS: Admitting Provider Obstetrics & Gynecology; Emergency Provider Physician Assistant; Visit Provider Obstetrics & Gynecology
DX: O91.22 Nonpurulent mastitis associated with the puerperium (principal); O99.893 Other specified diseases and conditions complicating puerperium; R00.0 Tachycardia, unspecified; O99.13 Other diseases of the blood and blood-forming organs and certain disorders involving the immune mechanism complicating the puerperium; D72.829 Elevated white blood cell count, unspecified
CPT/HCPCS: 36415; 80048; 85025; 96361; 96365; 99285; A9270; G0378; J0295; J7030